=== PATIENT | female | born 1950 | race Caucasian/White ===

== ENCOUNTER 2017-11-19 09:11 | Emergency (ER) | payer MEDICARE, OTHER ==
[~2017-11-19] VITALS: Ht 172.7 cm; Wt 84.0 kg
[~2017-11-19 09:11] MED LIST: DIPH1TAB PO; HYDR-569 PO; PHEN-873 PO
[2017-11-19] MEDS ORDERED: normal saline 1000ML IV soln IVB ONE (11:00)
[2017-11-19 11:43] VITALS: BP 121/72
[2017-11-19 12:08] LABS: BASOPHILS % (AUTO) 0.4 % (0-1); EOSINOPHILS # (AUTO) 0.1 X10'3 (0-0.9); EOSINOPHILS % (AUTO) 1.1 % (0-6); HEMATOCRIT 36.7 % (35.0-45.0); HEMOGLOBIN 12.5 g/dl (12.0-16.0); LYMPHOCYTES # (AUTO) 0.8 X10'3 (1.1-4.8); LYMPHOCYTES % (AUTO) 15.9 % (21-51); MEAN CORPUSCULAR HEMOGLOBIN 29.3 PG (27.0-31.0); MEAN CORPUSCULAR VOLUME 86.2 FL (78-98); MEAN PLATELET VOLUME 7.7 FL (7.4-10.4); MONOCYTES # (AUTO) 0.9 X10'3 (0-0.9); MONOCYTES % (AUTO) 19.5 % (2-12); NEUTROPHILS % (AUTO) 63.1 % (42-75); PLATELET COUNT 231 X10'3 (140-440); RED BLOOD COUNT 4.26 X10'6 (4.20-5.60); RED CELL DISTRIBUTION WIDTH 14.4 % (11.5-14.5); WHITE BLOOD COUNT 4.8 X10'3 (4.5-11.0)
[2017-11-19 12:25] LABS: ALANINE AMINOTRANSFERASE 25 U/L (12-78); ALBUMIN 2.9 G/DL (3.4-5.0); ALBUMIN/GLOBULIN RATIO 0.8 (1.1-1.5); ALKALINE PHOSPHATASE 101 IU/L (46-116); ANION GAP 7 (8-16); ASPARTATE AMINO TRANSFERASE 24 U/L (10-37); BILIRUBIN,TOTAL 0.3 MG/DL (0.1-1.0); BLOOD UREA NITROGEN 7 MG/DL (7-18); BUN/CREATININE RATIO 7.1 (6.6-38.0); CALCIUM 8.2 MG/DL (8.5-10.1); CHLORIDE 104 MMOL/L (99-107); CREATININE 0.99 MG/DL (0.40-0.90); GLUCOSE 99 MG/DL (70-104); LIPASE 82 U/L (73-393); POTASSIUM 3.9 MMOL/L (3.5-5.1); SODIUM 138 MMOL/L (135-145); TOTAL CARBON DIOXIDE 27.1 MMOL/L (24-32); TOTAL PROTEIN 6.7 G/DL (6.4-8.2); eGFR 56 ML/MIN
[2017-11-19 12:28] LABS: PLATELET ESTIMATE NORMAL; TOTAL CELLS COUNTED 100
[2017-11-19] MEDS ORDERED: metroNIDAZOLE 500mg tablet PO ONE (12:50)
[2017-11-19] MEDS ORDERED: METR500T4 PO (13:17)
[2017-11-19 14:21] LABS: OCCULT BLOOD STOOL NEGATIVE (Neg)
[2017-11-19 14:23] LABS: C DIFF ANTIGEN NEGATIVE (NEGATIVE); C DIFF SPECIMEN=DIARRHEA? ACCEPTABLE; C DIFFICILE TOXINS A&B NEGATIVE (Neg)
== END 2017-11-19 13:38 | disposition home or self-care (01) ==
LOC: ER 09:11
DX: R19.7 Diarrhea, unspecified (principal); R10.30 Lower abdominal pain, unspecified; Z90.710 Acquired absence of both cervix and uterus; Z98.890 Other specified postprocedural states; Z88.8 Allergy status to other drugs, medicaments and biological substances; Z79.2 Long term (current) use of antibiotics; Z79.899 Other long term (current) drug therapy
CPT/HCPCS: 36415; 74176; 80053; 82272; 83690; 85025; 87045; 87046; 87324; 87449; 89055; 96360; 96361; 99285; J3490; J7030

== ENCOUNTER 2019-06-11 18:27 | Emergency (ER) | payer MEDICARE, OTHER ==
[~2019-06-11] VITALS: Ht 172.7 cm; Wt 82.0 kg
[~2019-06-11 18:27] MED LIST changes: +HYDR-4383 PO; -HYDR-569 PO; +PHEN-786 PO; -PHEN-873 PO
[2019-06-11 18:29] VITALS: BP 126/58
[2019-06-11] MEDS ORDERED: ketorolac tromethamine 15mg/ml inj. IM ONE (19:40)
[2019-06-11] MEDS ORDERED: LIDO700A32 TOP (20:11)
== END 2019-06-11 20:26 | disposition home or self-care (01) ==
LOC: ER 18:27
DX: S20.211A Contusion of right front wall of thorax, initial encounter (principal); R05 Cough; Z90.710 Acquired absence of both cervix and uterus; Z98.890 Other specified postprocedural states; Z88.1 Allergy status to other antibiotic agents; Z88.5 Allergy status to narcotic agent; Z88.8 Allergy status to other drugs, medicaments and biological substances; W22.8XXA Striking against or struck by other objects, initial encounter; Y92.89 Other specified places as the place of occurrence of the external cause
CPT/HCPCS: 71101; 96372; 99283; J1885